=== PATIENT | female | born 1930 | race Caucasian/White ===

== ENCOUNTER 2018-12-24 15:41 | Inpatient (IN) | payer OTHER ==
[~2018-12-24] VITALS: Ht 162.6 cm; Wt 65.8 kg
[~2018-12-24 15:41] MED LIST: ATOR10TA PO; ATOR20TA PO; CAR30 PO; CARV12.5 PO; CARV3.12 PO; DABI75CA PO; DIGO0.122 PO; DOCU-474 PO; DOCU100C83 PO; DONE10TA10 PO; FURO-570 PO; FURO-572 PO; ISOS10TA9 PO; LEVO0.0211 PO; LEVO500T6 IV; LEVO500T6 PO; LEVO750T2 IV; MEMA10TA PO; MEMA28CE1 PO; METR500S14 IV; PAM25 PO; POTA10TA33 PO; POTA10TE30 PO; QUET50TA PO; RIVA20TA PO; SPIR50TA PO
[2018-12-24 15:45] VITALS: BP 134/70
[2018-12-24] MEDS ORDERED: NACL 0.9% 1,000 ML IV SCH (15:58)
[2018-12-24] MEDS ORDERED: LEVOFLOXACIN 500 MG/D5W PREMIX 100 ML IV ONE (16:00)
[2018-12-24] MEDS: LEVOFLOXACIN 250 MG/D5 PREMIX 50 ML IV SCH (16:00)
--- NOTE | 2018-12-24 16:01 | NUR ---
88/f bib daughter with c/o increasing sob and aloc. Per daughter sts since pt was discharged from [facility] last friday she has been increasingly getting sob. Patient was referred from PCP today for hypoxia. Per referral, patient pulse ox=77% on ra. On arrival, pulse ox=98% on ra. RR are even and tachypneic. Patient denies any cp. hx--COPD, A FIB, CHF, ALZHEIMER rx--daughter sts "on her file" DENIES N/V/D; SKIN IS PALE/WARM/DRY; IAN LEGS PITTING EDEMA. NEUROLOGICAL AT BASELINE. LUNGS CLEAR BL; PULSE OX 97% AT THIS TIME. HR 83/MINS, RR 23/MINS; PT DENIES ANY FEVER, CP OR OR COUGH AT THIS TIME; PATIENT STATES PAIN OF 0/10 AT THIS TIME. PATIENT POSITIONED FOR COMFORT; HOB ELEVATED; BEDRAILS UP X2; BED DOWN. ER MD MADE AWARE OF PT STATUS.
--- NOTE | 2018-12-24 16:09 | NUR ---
CXR AT BEDSIDE.
--- NOTE | 2018-12-24 16:09 | NUR ---
Patient being evaluated by DR GARCES at bedside. Addendum: 12/24/18 at 1809 by MED1 PT CAN'T PROVIDE URINE AT THIS TIME.
[2018-12-24 16:48] LABS: BASOPHILS # (AUTO) 0.1 K/uL (0.00-0.22); BASOPHILS % (AUTO) 1.1 % (0.0-2.0); EOSINOPHILS # (AUTO) 0.4 K/uL (0-0.4); EOSINOPHILS % (AUTO) 4.3 % (0.0-4.0); HEMATOCRIT 40.4 % (36-48); HEMOGLOBIN 12.6 g/dL (12.0-16.0); LYMPHOCYTES # (AUTO) 0.8 K/uL (2.5-16.5); LYMPHOCYTES % (AUTO) 10.3 % (20.5-51.1); MEAN CORPUSCULAR HEMOGLOBIN 26 pg (27-31); MEAN CORPUSCULAR HGB CONC 31 g/dL (33-37); MONOCYTES # (AUTO) 0.5 K/uL (0.8-1.0); NEUTROPHILS # (AUTO) 6.4 K/uL (1.8-7.7); NEUTROPHILS % (AUTO) 78.3 % (42.2-75.2); PLATELET COUNT (AUTO) 211 K/uL (140-450); RED BLOOD CELL COUNT(AUTO) 4.81 MIL/uL (4.20-5.40); RED CELL DISTRIBUTION WIDTH 18.6 % (11.6-13.7); WHITE BLOOD COUNT (AUTO) 8.1 K/uL (4.8-10.8)
[2018-12-24 17:14] LABS: ANION GAP 7.9 (8-16); CARBON DIOXIDE 31.7 mmol/L (21-32); CHLORIDE 101 mmol/L (98-107); CREATININE 1.4 mg/dL (0.6-1.3); GLUCOSE 100 mg/dL (74-106); POTASSIUM 4.6 mmol/L (3.5-5.1); SODIUM SERUM 136 mmol/L (136-145); UREA NITROGEN, BLOOD 33 mg/dL (7-18)
[2018-12-24 17:18] LABS: ALBUMIN 3.8 g/dL (3.4-5.0); ASPARTATE AMINOTRANSFERASE 25 U/L (15-37); TOTAL BILIRUBIN 0.6 mg/dL (0.0-1.0)
--- NOTE | 2018-12-24 18:04 | NUR ---
Patient will be admitted to care of DR GARCIA. Admited to TELE. Will go to room 124A. Belongings list completed. Report to GUANAKITO ARCE.
--- NOTE | 2018-12-24 18:08 | NUR ---
Jolanta crandall in [facility] - 12/24/18 at 1809 by MED1 PT CAN'T PROVIDE URINE AT THIS TIME.
[2018-12-24 18:30] VITALS: BP 144/78
--- NOTE | 2018-12-24 18:30 | NUR ---
PT ARRIVED FROM ER IN [facility], REPORT RECIVED FROM INSIDE SALES PERSON, PT PLACED ON LINE PALLETIZER, PT AWAKE ALERT, RESP EVEN UNLABORED ON RA, SKIN WARM DRY COLOR WNL, PT ACCOMPANIED BY DAUGHTER, PATINET AND DAUGHTER ORIENTED TO ROOM AND UNIT, POC REVIEWED, CALL GILBERT WITHIN REACH SIDE RAILS UP, BED LOCKED IN LOW POSITION, WILL CONTINUE TO MONITOR
--- NOTE | 2018-12-24 19:15 | NUR ---
REPORT GIVEN TO MANAGER MISSION NURSE CURTIS AND NASIR, PT IN STABLE CONDITION, DAUGHTER OSITO AT BEDSIDE.
--- NOTE | 2018-12-24 19:16 | NUR ---
RECEIVED ENDORSEMENT FROM AM YAZMIN CALABRESE; PATIENT A/Ox2, ABLE TO MAKE NEEDS KNOWN, BUT CONFUSED. INTRODUCED SELF AND RN CURTIS TO PATIENT. PATIENT'S PRIMARY LANGUAGE IS NAURUAN; DAUGHTER ANGELIKA IN THE ROOM, ABLE TO TRANSLATE. NO SOB OR DISTRESS NOTED, ON ROOM AIR. SKIN WARM AND DRY. PLAN OF CARE REVIEWED TO PATIENT AND DAUGHTER. BED IN THE LOWEST POSITION, CALL LIGHT WITHIN REACH. INITIAL ASSESSMENT DONE, ALL SAFETY PRECAUTIONS MET. WILL CONTINUE TO MONITOR
--- NOTE | 2018-12-24 21:05 | NUR ---
MADE ROUNDS; PATIENT ASLEEP, EYES CLOSED, VISIBLE CHEST RISE AND FALL NOTED. WILL CONTINUE TO MONITOR.
[2018-12-24] MEDS ORDERED: HYDROcodone/APAP 5/325 MG 1 TAB TAB PO PRN (21:30)
[2018-12-24] MEDS ORDERED: ACETAMINOPHEN 325 MG TAB PO PRN (21:30)
[2018-12-24] MEDS ORDERED: LORazepam 2 MG/ML VIAL IVP PRN (21:30)
[2018-12-24] MEDS ORDERED: ONDANSETRON 4 MG/2 ML VIAL IVP PRN (21:30)
[2018-12-24 22:41] LABS: APPEARANCE,URINE CLEAR (CLEAR); BILIRUBIN,URINE NEGATIVE (NEGATIVE); BLOOD, URINE NEGATIVE (NEGATIVE); COLOR,URINE YELLOW (YELLOW); LEUKOCYTE ESTERASE ,URINE 1+ (NEGATIVE); NITRITE, URINE NEGATIVE (NEGATIVE); UGLUCOSE NEGATIVE (NEGATIVE)
[2018-12-24 22:43] LABS: RBC,URINE 0-5 (RARE) /HPF (0-5)
--- NOTE | 2018-12-24 22:59 | NUR ---
LAB CALLED REGARDING CRITICAL LAB VALUE; PATIENT IS INFLUENZA B (+). DR. CONLEY NOTIFIED VIA MESSAGING SERVICE. WILL AWAIT ORDERS.
[2018-12-24] MEDS ORDERED: LEVOFLOXACIN 500 MG/D5W PREMIX 100 ML IV SCH (23:00)
--- NOTE | 2018-12-24 23:12 | NUR ---
DR. CONLEY CALLED BACK; NEW ORDERS RECEIVED AND CARRIED OUT.
[2018-12-25] VITALS: BP 103/72
--- NOTE | 2018-12-25 00:06 | NUR ---
VITALS TAKEN, ALL WNL. WILL CONTINUE TO MONITOR.
--- NOTE | 2018-12-25 02:26 | NUR ---
PATIENT ASLEEP, NO SOB OR DISTRESS NOTED. VISIBLE CHEST RISE AND FALL NOTED. WILL CONTINUE TO MONITOR.
[2018-12-25 04:00] VITALS: BP 138/89
--- NOTE | 2018-12-25 04:20 | NUR ---
VITALS TAKEN, NO SOB OR DISTRESS NOTED. WILL CONTINUE TO MONITOR.
[2018-12-25 06:24] LABS: BASOPHILS # (AUTO) 0.1 K/uL (0.00-0.22); BASOPHILS % (AUTO) 0.8 % (0.0-2.0); EOSINOPHILS # (AUTO) 0.3 K/uL (0-0.4); EOSINOPHILS % (AUTO) 3.3 % (0.0-4.0); HEMATOCRIT 37.1 % (36-48); HEMOGLOBIN 11.6 g/dL (12.0-16.0); LYMPHOCYTES # (AUTO) 1.1 K/uL (2.5-16.5); LYMPHOCYTES % (AUTO) 14.7 % (20.5-51.1); MEAN CORPUSCULAR HEMOGLOBIN 26 pg (27-31); MEAN CORPUSCULAR HGB CONC 31 g/dL (33-37); MEAN CORPUSCULAR VOLUME 83.5 fL (80-94); MONOCYTES # (AUTO) 0.7 K/uL (0.8-1.0); MONOCYTES % (AUTO) 9.5 % (1.7-9.3); NEUTROPHILS # (AUTO) 5.5 K/uL (1.8-7.7); NEUTROPHILS % (AUTO) 71.7 % (42.2-75.2); PLATELET COUNT (AUTO) 197 K/uL (140-450); RED BLOOD CELL COUNT(AUTO) 4.44 MIL/uL (4.20-5.40); RED CELL DISTRIBUTION WIDTH 18.4 % (11.6-13.7); WHITE BLOOD COUNT (AUTO) 7.7 K/uL (4.8-10.8)
[2018-12-25] MEDS ORDERED: LEVOTHYROXINE SODIUM PO SCH (06:30)
[2018-12-25 06:51] LABS: ALBUMIN 3.1 g/dL (3.4-5.0); ANION GAP 9.8 (8-16); ASPARTATE AMINOTRANSFERASE 25 U/L (15-37); CARBON DIOXIDE 26.4 mmol/L (21-32); CHLORIDE 107 mmol/L (98-107); CREATININE 0.9 mg/dL (0.6-1.3); GLUCOSE 89 mg/dL (74-106); MAGNESIUM 2.3 mg/dL (1.8-2.4); PHOSPHORUS 3.1 mg/dL (2.5-4.9); POTASSIUM 4.2 mmol/L (3.5-5.1); SODIUM SERUM 139 mmol/L (136-145); TOTAL BILIRUBIN 0.6 mg/dL (0.0-1.0); UREA NITROGEN, BLOOD 23 mg/dL (7-18)
[2018-12-25] MEDS ORDERED: HYDROcodone/APAP 5/325 MG 1 TAB TAB PO PRN (07:15)
--- NOTE | 2018-12-25 07:20 | NUR ---
RECEIVED PT REPORT FROM HARNESS TIER NURSE AT BEDSIDE. PT IS AWAKE IN BED, NO S/S OF ACUTE DISTRESS NOTED, NO C/O PAIN AT THIS TIME. PT IS ON ROOM AIR, SKIN IS INTACT. SCD'S ARE ON. IV SITE NOTED ON THE LAC, 20 G, SALINE LOCKED. DROPLET PRECAUTIONS IN PLACE FOR FLU. FALL PRECAUTIONS IN PLACE. CALL LIGHT WITHIN REACH. WILL CONT TO MONITOR PT.
--- NOTE | 2018-12-25 07:20 | NUR ---
ENDORSED PATIENT TO AM SHIFT RN. PATIENT IN STABLE CONDITION.
[2018-12-25] MEDS ORDERED: LEVOTHYROXINE 0.025 MG TAB PO SCH (07:30)
--- NOTE | 2018-12-25 07:30 | NUR ---
PT HAVING REPEAT CXR AT THIS TIME.
[2018-12-25 08:00] VITALS: BP 152/71
--- NOTE | 2018-12-25 08:16 | NUR ---
PATIENT HAS BEEN SCREENED AND CATEGORIZED MODERATE NUTRITION RISK. PATIENT WILL BE SEEN WITHIN 3-5 DAYS OF ADMISSION. 12/27/18MARYCARMEN CONLEY RD
--- NOTE | 2018-12-25 08:40 | NUR ---
PT C/O SOB. VS CHECKED, O2 IS 94% ON RA. PT COUGHING INTERMITTENTLY. RT CALLED TO GIVE PT BREATHING TX. Addendum: 12/25/18 at 1100 by Vera Prabhakar RN 2L O2 NC APPLIED FOR PT'S BREATHING AND COMFORT
[2018-12-25] MEDS: ALBUTEROL 0.083% 2.5 MG/3 ML NEBU INH PRN ×2 (08:45→18:47)
--- NOTE | 2018-12-25 08:53 | NUR ---
PT SEEN BY DR GARCIA
[2018-12-25] MEDS: OSELTAMIVIR PHOSPHATE 75 MG CAP PO SCH (08:57)
[2018-12-25] MEDS: DOCUSATE SODIUM 100 MG GELCAP PO SCH ×2 (08:57→20:54)
[2018-12-25] MEDS: QUEtiapine FUMARATE 25 MG TAB PO SCH ×2 (08:57→20:59)
[2018-12-25] MEDS: ISOSORBIDE DINITRATE 10 MG TAB PO SCH ×2 (08:57→20:55)
[2018-12-25] MEDS: CARVEDILOL 12.5 MG TAB PO SCH ×2 (08:59→20:54)
[2018-12-25] MEDS: FUROSEMIDE 20 MG TAB PO SCH (08:59)
[2018-12-25] MEDS: DILTIAZEM 30 MG TAB PO SCH ×2 (08:59→20:55)
[2018-12-25] MEDS: MEMANTINE 10 MG TAB PO SCH ×2 (08:59→20:55)
[2018-12-25] MEDS ORDERED: NON-FORMULARY ITEM (Memantine HCl (Namenda Xr) 28 MG) PO SCH (09:00)
[2018-12-25] MEDS: SPIRONOLACTONE 25 MG TAB PO SCH ×2 (09:00→16:56)
[2018-12-25] MEDS ORDERED: DOCUSATE SODIUM 100 MG PO SCH (09:00)
[2018-12-25] MEDS ORDERED: MEMANTINE 10 MG TAB PO SCH (09:00)
[2018-12-25] MEDS: DABIGATRAN ETEXILATE MESYLAT 75 MG CAP PO SCH ×2 (09:05→21:14)
[2018-12-25 11:41] VITALS: BP 112/64
[2018-12-25] MEDS ORDERED: NACL 0.9% 1,000 ML IV SCH (13:50)
--- NOTE | 2018-12-25 14:00 | NUR ---
CHECKED PT'S VITAL SIGNS, PT'S HEART RATE IS BETWEEN 44-50, BP IS 94/44. PT IS DROWSY AND SLEEPY. DAUGHTER IS CONCERNED. DR CHIRAG GARCIA WAS PAGED. OBTAINED ORDERS FROM HIM TO ADMIN 1000 ML NS BOLUS, ECHOCARDIOGRAPHY, TROPONIN DRAW, AND A CARDIAC CONSULT WITH ANDREE GARCIA. NS BOLUS IS INFUSING AT THIS TIME. PT'S DAUGHTER IS AT BEDSIDE. CONTINUING TO MONITOR PT.
--- NOTE | 2018-12-25 14:30 | NUR ---
PT HAVING ECHOCARDIOGRAM AT THIS TIME
--- NOTE | 2018-12-25 15:19 | NUR ---
PT REASSESSED, PT IS SLEEPING. IV NS BOLUS IS INFUSING, BP IS 101/49 AT THIS TIME, HEART RATE FLUCTUATING BETWEEN 59-65. DAUGHTERS ARE AT BEDSIDE. WILL CONTINUE TO MONITOR PT.
--- NOTE | 2018-12-25 15:49 | NUR ---
PT'S DAUGHTER ANGELIKA IS TAKING PT'S DENTURES HOME.
--- NOTE | 2018-12-25 15:50 | NUR ---
PT REASSESSED: BP 112/63, HR 66, O2 99% ON 2L, TEMP 97.5, RR 18. PT IS AWAKE, DAUGHTER IS AT BEDSIDE.
[2018-12-25 16:00] VITALS: BP 120/56
[2018-12-25] MEDS: LEVOFLOXACIN 250 MG/D5 PREMIX 50 ML IV SCH (16:02)
--- NOTE | 2018-12-25 18:30 | NUR ---
PT C/O SOB, RT CALLED TO GIVE A BREATHING TX. PT REPORTS FEELING BETTER AFTER BREATHING TX. FAMILY IS AT BEDSIDE.
--- NOTE | 2018-12-25 19:20 | NUR ---
PT ENDORSED TO JACQUARD CARD CUTTER IN STABLE CONDITION
[2018-12-25 20:00] VITALS: BP 147/68
[2018-12-25] MEDS: NORTRIPTYLINE 25 MG CAP PO SCH (20:53)
[2018-12-25] MEDS: ATORVASTATIN 20 MG TAB PO SCH (20:55)
[2018-12-25] MEDS: DONEPEZIL 10 MG TAB PO SCH (20:55)
[2018-12-25] MEDS: BISACODYL 10 MG SUPP RC PRN (21:40)
--- NOTE | 2018-12-25 22:00 | NUR ---
DUE MEDICATIONS GIVEN PATIENT TOLERATED WELL.
--- NOTE | 2018-12-25 22:30 | NUR ---
FAMILY STATED PATIENT IS HAVING DIFFICULTY TO PASS BM CALLED DR GARCIA ORDER FOR DULCOLAX SUPPOSITORY PRN DAILY, INSERTED SUPPOSITORY.
--- NOTE | 2018-12-25 23:00 | NUR ---
PATIENT AMBULATED TO RESTROOM, UNSTEADY GAIT, ALMOST FELL WHEN STANDING UP ACCORDING TO COMPOSITE TECHNICIAN. PLACED BEDSIDE COMMODE AT BEDSIDE. Addendum: 12/25/18 at 2312 by Leann Guajardo RN WRONG PATIENT DISREGARD.
[2018-12-26] VITALS: BP 119/58
--- NOTE | 2018-12-26 | NUR ---
V/S TAKEN BP 119/58 HR 77 98% ON 3 L VIA NC RR 16 EVEN. DENIES PAIN WILL CONTINUE TO MONITOR. CHANGED PATIENT, SMALL BM NOTED, HEIDY CARE PROVIDED, WILL CONTINUE TO MONITOR.
[2018-12-26] MEDS: ALBUTEROL 0.083% 2.5 MG/3 ML NEBU INH PRN ×2 (01:25→06:29)
[2018-12-26 04:00] VITALS: BP 106/50
--- NOTE | 2018-12-26 04:00 | NUR ---
O2 WENT DOWN TO 64% WHEN SLEEPING, CALLED R/T PLACED HOB UP, PATIENT WOKE UP ON 3 L, O2SAT 100%.
[2018-12-26] MEDS: LEVOTHYROXINE 0.025 MG TAB PO SCH (06:03)
--- NOTE | 2018-12-26 06:30 | NUR ---
DUE MEDICATION GIVEN, WILL CONTINUE TO MONITOR.
--- NOTE | 2018-12-26 07:30 | NUR ---
PATIENT WAS AWAKE, ALERT, ABLE TO ANSWER QUESTIONS. RESPIRATION EVEN, UNLABOR ON 3L NC. SKIN DRY AND WARM. IV PATENT AND INTACT. DENIED PAIN, SOB AT THIS TIME. PLAN OF CARE WAS DISCUSSED WITH PATIENT AND FAMILY. BED AT LOW POSITION, SIDE RAILS UP. CALL LIGHT WITHIN REACH
--- NOTE | 2018-12-26 07:33 | NUR ---
ENDORSED PATIENT TO DAY SHIFT NURSE, PATIENT STABLE.
[2018-12-26 07:38] LABS: BASOPHILS % (AUTO) 0.4 % (0.0-2.0); EOSINOPHILS # (AUTO) 0.2 K/uL (0-0.4); EOSINOPHILS % (AUTO) 2.2 % (0.0-4.0); HEMATOCRIT 38.4 % (36-48); HEMOGLOBIN 11.9 g/dL (12.0-16.0); LYMPHOCYTES % (AUTO) 11.7 % (20.5-51.1); MEAN CORPUSCULAR HEMOGLOBIN 26 pg (27-31); MEAN CORPUSCULAR HGB CONC 31 g/dL (33-37); MEAN CORPUSCULAR VOLUME 84.8 fL (80-94); MONOCYTES # (AUTO) 0.8 K/uL (0.8-1.0); MONOCYTES % (AUTO) 8.8 % (1.7-9.3); NEUTROPHILS # (AUTO) 6.6 K/uL (1.8-7.7); NEUTROPHILS % (AUTO) 76.9 % (42.2-75.2); PLATELET COUNT (AUTO) 173 K/uL (140-450); RED BLOOD CELL COUNT(AUTO) 4.52 MIL/uL (4.20-5.40); RED CELL DISTRIBUTION WIDTH 18.6 % (11.6-13.7); WHITE BLOOD COUNT (AUTO) 8.6 K/uL (4.8-10.8)
[2018-12-26 07:43] LABS: ANION GAP 10.1 (8-16); CARBON DIOXIDE 30.1 mmol/L (21-32); CHLORIDE 104 mmol/L (98-107); CREATININE 0.9 mg/dL (0.6-1.3); GLUCOSE 106 mg/dL (74-106); SODIUM SERUM 139 mmol/L (136-145); UREA NITROGEN, BLOOD 23 mg/dL (7-18)
[2018-12-26 07:44] LABS: POTASSIUM 5.2 mmol/L (3.5-5.1)
[2018-12-26 08:00] VITALS: BP 107/55
[2018-12-26] MEDS: SPIRONOLACTONE 25 MG TAB PO SCH (09:00)
--- NOTE | 2018-12-26 09:45 | NUR ---
PATIENT WAS AWAKE. RESPIRATION EVEN, UNLABOR ON 2L NC. NO DISTRESS NOTED AT THIS TIME. MEDS WERE GIVEN PER ORDER. BED ALARM ACTIVE. CALL LIGHT WITHIN REACH
[2018-12-26] MEDS: OSELTAMIVIR PHOSPHATE 75 MG CAP PO SCH (09:48)
[2018-12-26] MEDS: QUEtiapine FUMARATE 25 MG TAB PO SCH ×2 (09:48→20:39)
[2018-12-26] MEDS: FUROSEMIDE 20 MG TAB PO SCH (09:48)
[2018-12-26] MEDS: MEMANTINE 10 MG TAB PO SCH ×2 (09:48→20:41)
[2018-12-26] MEDS: DILTIAZEM 30 MG TAB PO SCH ×2 (09:48→20:39)
[2018-12-26] MEDS: DOCUSATE SODIUM 100 MG GELCAP PO SCH ×2 (09:49→20:41)
[2018-12-26] MEDS: ISOSORBIDE DINITRATE 10 MG TAB PO SCH ×2 (09:49→20:40)
[2018-12-26] MEDS: CARVEDILOL 12.5 MG TAB PO SCH ×2 (09:49→20:40)
[2018-12-26] MEDS: DABIGATRAN ETEXILATE MESYLAT 75 MG CAP PO SCH ×2 (09:51→20:56)
--- NOTE | 2018-12-26 11:01 | NUR ---
DR. CHIRAG GARCIA WAS MADE AWARE OF POTASSIUM LEVEL 5.2. CONTINUE TO MONITOR PER
[2018-12-26 12:00] VITALS: BP 92/61
--- NOTE | 2018-12-26 12:00 | NUR ---
abg drawn on rb without incident and decreased fio2 to 1lnc and results given to rn. parsons
--- NOTE | 2018-12-26 12:30 | NUR ---
PATIENT WAS SLEEPING COMFORTABLY. RESPIRATION EVEN, UNLABOR ON 1L NC. NO DISTRESS NOTED AT THIS TIME
[2018-12-26] MEDS: BISACODYL 10 MG SUPP RC PRN (13:23)
--- NOTE | 2018-12-26 13:49 | NUR ---
PATIENT WAS GIVEN SUPPOSITORY PER ORDER FOR CONSTIPATION. PATIENT WAS GASPING FOR AIR UPON TURNING. PATIENT WAS PLACED ON 2L NC, SPO2 96%. PATIENT IS STABLE AT THIS TIME
[2018-12-26] MEDS: LEVOFLOXACIN 250 MG/D5 PREMIX 50 ML IV SCH (15:38)
--- NOTE | 2018-12-26 15:55 | NUR ---
PATIENT HAD BM X 1 WITH MODERATE AMOUNT, HARD STOOL
[2018-12-26 16:00] VITALS: BP 107/62
--- NOTE | 2018-12-26 18:02 | NUR ---
PATIENT WAS AWAKE, EATING DINNER COMFORTABLY. RESPIRATION EVEN, UNLABOR ON 2L NC. IV PATENT AND INTACT. NO DISTRESS NOTED AT THIS TIME. FAMILY AT BEDSIDE, CALL LIGHT WITHIN REACH
--- NOTE | 2018-12-26 19:12 | NUR ---
ENDORSEMENT GIVEN TO AIRPLANE PILOT COMMERCIAL NURSE. PATIENT IS STABLE AT THIS TIME
--- NOTE | 2018-12-26 19:12 | NUR ---
RECEIVED BEDSIDE REPORT FROM YAZMIN CABRERA, PATIENT IN BED, ON 2 L NC, O2SAT 99%, BP 130/75 HR 97, DENIES PAIN, ON DROPLET PRECAUTIONS, PATIENT IS FALL RISK, BED ALARM ON, FAMILY AT BEDSIDE, UPDATED BOARD, EXPLAINED PLAN OF CARE, WILL CONTINUE TO MONITOR.
[2018-12-26 20:00] VITALS: BP 130/75
[2018-12-26] MEDS: NORTRIPTYLINE 25 MG CAP PO SCH (20:39)
--- NOTE | 2018-12-26 20:39 | NUR ---
DUE MEDICATIONS GIVEN, PATIENT TOLERATED WELL, PATIENT ASKED TO SLEEP. TURNED LIGHTS OFF, BED ALARM ON, REPOSITIONED PATIENT FOR COMFORT, WILL CONTINUE TO MONITOR.
[2018-12-26] MEDS: DONEPEZIL 10 MG TAB PO SCH (20:40)
[2018-12-26] MEDS: ATORVASTATIN 20 MG TAB PO SCH (20:41)
--- NOTE | 2018-12-26 22:06 | NUR ---
PATIENT SLEEPING IN BED, BED ALARM ON, CALL LIGHT WITHIN REACH.
[2018-12-27] VITALS: BP 115/69
--- NOTE | 2018-12-27 00:25 | NUR ---
V/S TAKEN BP 115/69 HR 65 O2SAT 99% ON 2 L NC. PATIENT DENIES PAIN. BED ALARM ON.
--- NOTE | 2018-12-27 02:20 | NUR ---
PATIENT ASLEEP IN BED, NO SIGNS OF RESPIRATORY DISTRESS. O2SAT 95% ON 2 L VIA NC WHILE ASLEEP.
[2018-12-27 03:58] VITALS: BP 128/88
--- NOTE | 2018-12-27 04:00 | NUR ---
V/S TAKEN NOTED BP 128/88 HR 70 98% ON 2 L NC.
[2018-12-27] MEDS: LEVOTHYROXINE 0.025 MG TAB PO SCH (05:45)
--- NOTE | 2018-12-27 06:27 | NUR ---
DUE SYNTHROID GIVEN PATIENT TOLERATED WELL.
--- NOTE | 2018-12-27 07:28 | NUR ---
ENDORSED PATIENT TO DAY SHIFT NURSE, PATIENT STABLE.
--- NOTE | 2018-12-27 07:33 | NUR ---
RECEIVED PT FROM BLOOD OR BLOOD BANK TECHNICIAN NURSE, PT IS AWAKE AND LYING ON THE BED WITH SIDE RAILS UP AND CALL LIGHT WITHIN REACH, FALL PRECAUTION ENFORCED, PT IS ON DROPLET PRECAUTION, IV LINE ON THE LEFT AC G. 20 ON SALINE LOCK, NO SIGN OF DISTRESS NOTED AND WILL CONTINUE TO MONITOR PT.
[2018-12-27 07:54] LABS: BASOPHILS # (AUTO) 0.1 K/uL (0.00-0.22); BASOPHILS % (AUTO) 1.2 % (0.0-2.0); EOSINOPHILS # (AUTO) 0.3 K/uL (0-0.4); EOSINOPHILS % (AUTO) 3.8 % (0.0-4.0); HEMATOCRIT 36.8 % (36-48); HEMOGLOBIN 11.5 g/dL (12.0-16.0); LYMPHOCYTES # (AUTO) 1.3 K/uL (2.5-16.5); LYMPHOCYTES % (AUTO) 18.2 % (20.5-51.1); MEAN CORPUSCULAR HEMOGLOBIN 27 pg (27-31); MEAN CORPUSCULAR HGB CONC 31 g/dL (33-37); MEAN CORPUSCULAR VOLUME 85.1 fL (80-94); MONOCYTES # (AUTO) 0.7 K/uL (0.8-1.0); MONOCYTES % (AUTO) 9.5 % (1.7-9.3); NEUTROPHILS # (AUTO) 4.9 K/uL (1.8-7.7); NEUTROPHILS % (AUTO) 67.3 % (42.2-75.2); PLATELET COUNT (AUTO) 166 K/uL (140-450); RED BLOOD CELL COUNT(AUTO) 4.33 MIL/uL (4.20-5.40); RED CELL DISTRIBUTION WIDTH 18.8 % (11.6-13.7); WHITE BLOOD COUNT (AUTO) 7.3 K/uL (4.8-10.8)
[2018-12-27 08:00] VITALS: BP 128/66
[2018-12-27 08:02] LABS: ANION GAP 11.2 (8-16); CARBON DIOXIDE 29.4 mmol/L (21-32); CHLORIDE 105 mmol/L (98-107); CREATININE 1.1 mg/dL (0.6-1.3); GLUCOSE 101 mg/dL (74-106); POTASSIUM 4.6 mmol/L (3.5-5.1); SODIUM SERUM 141 mmol/L (136-145); UREA NITROGEN, BLOOD 28 mg/dL (7-18)
--- NOTE | 2018-12-27 08:15 | NUR ---
PT IS AWAKE AND BEING FED BY DAUGHTER ON THE BEDSIDE, VITAL SIGNS TAKEN AND WITHIN NORMAL LIMIT. NO SIGN OF DISTRESS NOTED AND WILL MONITOR PT.
[2018-12-27] MEDS: DABIGATRAN ETEXILATE MESYLAT 75 MG CAP PO SCH ×2 (09:01→20:34)
[2018-12-27] MEDS: QUEtiapine FUMARATE 25 MG TAB PO SCH ×2 (09:02→20:28)
[2018-12-27] MEDS: FUROSEMIDE 20 MG TAB PO SCH (09:02)
[2018-12-27] MEDS: ISOSORBIDE DINITRATE 10 MG TAB PO SCH (09:04)
[2018-12-27] MEDS: CARVEDILOL 12.5 MG TAB PO SCH ×2 (09:05→20:27)
[2018-12-27] MEDS: MEMANTINE 10 MG TAB PO SCH ×2 (09:05→20:27)
[2018-12-27] MEDS: DOCUSATE SODIUM 100 MG GELCAP PO SCH ×2 (09:05→20:26)
[2018-12-27] MEDS: OSELTAMIVIR PHOSPHATE 75 MG CAP PO SCH (09:06)
[2018-12-27] MEDS: DILTIAZEM 30 MG TAB PO SCH ×2 (09:06→20:26)
--- NOTE | 2018-12-27 09:10 | NUR ---
PT IS AWAKE AND SEATED ON THE BED, V/S TAKEN PER PARAMETER, ORAL MEDICATIONS GIVEN TO PT, CRUSHED AND WITH APPLE SAUCE AND PT TOLERATED IT WITH ASPIRATION PRECAUTION. NO SIGN OF DISTRESS NOTED AND WILL CONTINUE TO MONITOR PT.
[2018-12-27 12:00] VITALS: BP 100/56
--- NOTE | 2018-12-27 12:48 | NUR ---
DR. GARAY CAME TO THE PT'S ROOM AND IS TALKING TO THE PT'S DAUGHTERS NOW.
[2018-12-27] MEDS: SILDENAFIL 20 MG TAB PO SCH ×2 (13:00→16:18)
[2018-12-27 16:00] VITALS: BP 118/55
[2018-12-27] MEDS: LEVOFLOXACIN 250 MG/D5 PREMIX 50 ML IV SCH (16:23)
--- NOTE | 2018-12-27 19:20 | NUR ---
ENDORSED PT TO DEPENDENCY COUNSELOR NURSECLAIRE FOR CONTINUITY OF CARE, PT IS STABLE AT THIS TIME.
--- NOTE | 2018-12-27 19:21 | NUR ---
RECEIVED REPORT FROM DAY SHIFT NURSE WINSTON-RN AT BEDSIDE. PT RESTING IN BED, AOX2- IRISH SPEAKING, ON 2L/NC WITH LEFT AC #20G-SL. DISCUSSED PLAN OF CARE AND PT VERBALIZED UNDERSTANDING. BED IN LOWEST POSITION, BED BREAKS ON, BOTH SIDE RAILS UP AND FALL AND DROPLET PRECAUTIONS IN PLACE. BEDSIDE TABLE AND CALL LIGHT ARE WITHIN REACH. WILL CONTINUE TO MONITOR.
[2018-12-27 20:00] VITALS: BP 132/79
--- NOTE | 2018-12-27 20:00 | NUR ---
VITAL SIGNS TAKEN AND TOLERATED WELL. NEW IV SITE ON LEFT AC #22G- FLUSHING WELL ON SL. NO S/S OF RESPIRATORY DISTRESS OR DISCOMFORT NOTED AT THIS TIME. WILL CONTINUE TO MONITOR.
[2018-12-27] MEDS: DONEPEZIL 10 MG TAB PO SCH (20:26)
[2018-12-27] MEDS: ATORVASTATIN 20 MG TAB PO SCH (20:27)
[2018-12-27] MEDS: NORTRIPTYLINE 25 MG CAP PO SCH (20:28)
--- NOTE | 2018-12-27 20:34 | NUR ---
SCHEDULED MEDICATION GIVEN AND TOLERATED WELL. NO S/S OF RESPIRATORY DISTRESS OR DISCOMFORT NOTED AT THIS TIME. WILL CONTINUE TO MONITOR.
--- NOTE | 2018-12-27 22:00 | NUR ---
PT SLEEPING IN BED. NO S/S OF RESPIRATORY DISTRESS OR DISCOMFORT NOTED AT THIS TIME. WILL CONTINUE TO MONITOR.
[2018-12-28] VITALS: BP 106/47
--- NOTE | 2018-12-28 | NUR ---
VITAL SIGNS TAKEN AND TOLERATED WELL. NO S/S OF RESPIRATORY DISTRESS OR DISCOMFORT NOTED AT THIS TIME. WILL CONTINUE TO MONITOR.
--- NOTE | 2018-12-28 02:00 | NUR ---
PT SLEEPING IN BED. NO S/S OF RESPIRATORY DISTRESS OR DISCOMFORT AT THIS TIME. WILL CONTINUE TO MONITOR.
[2018-12-28 04:00] VITALS: BP 144/67
--- NOTE | 2018-12-28 04:00 | NUR ---
VITAL SIGNS TAKEN AND TOLERATED WELL. NO S/S OF RESPIRATORY DISTRESS OR DISCOMFORT AT THIS TIME. WILL CONTINUE TO MONITOR.
[2018-12-28] MEDS: LEVOTHYROXINE 0.025 MG TAB PO SCH (06:02)
--- NOTE | 2018-12-28 06:02 | NUR ---
SCHEDULED MEDICATION SYNTHROID GIVEN AND TOLERATED WELL. NO S/S OF RESPIRATORY DISTRESS OR DISCOMFORT AT THIS TIME. WILL CONTINUE TO MONITOR.
[2018-12-28 06:23] LABS: BASOPHILS % (AUTO) 0.5 % (0.0-2.0); EOSINOPHILS # (AUTO) 0.2 K/uL (0-0.4); EOSINOPHILS % (AUTO) 2.8 % (0.0-4.0); HEMOGLOBIN 11.7 g/dL (12.0-16.0); LYMPHOCYTES # (AUTO) 1.2 K/uL (2.5-16.5); LYMPHOCYTES % (AUTO) 15.7 % (20.5-51.1); MEAN CORPUSCULAR HEMOGLOBIN 26 pg (27-31); MEAN CORPUSCULAR HGB CONC 31 g/dL (33-37); MEAN CORPUSCULAR VOLUME 84.3 fL (80-94); MONOCYTES # (AUTO) 0.7 K/uL (0.8-1.0); MONOCYTES % (AUTO) 9.1 % (1.7-9.3); NEUTROPHILS # (AUTO) 5.4 K/uL (1.8-7.7); NEUTROPHILS % (AUTO) 71.9 % (42.2-75.2); PLATELET COUNT (AUTO) 187 K/uL (140-450); RED BLOOD CELL COUNT(AUTO) 4.51 MIL/uL (4.20-5.40); WHITE BLOOD COUNT (AUTO) 7.6 K/uL (4.8-10.8)
[2018-12-28 06:55] LABS: ASPARTATE AMINOTRANSFERASE 22 U/L (15-37); CARBON DIOXIDE 30.6 mmol/L (21-32); CHLORIDE 107 mmol/L (98-107); CREATININE 1.1 mg/dL (0.6-1.3); GLUCOSE 114 mg/dL (74-106); POTASSIUM 4.6 mmol/L (3.5-5.1); SODIUM SERUM 140 mmol/L (136-145); TOTAL BILIRUBIN 0.5 mg/dL (0.0-1.0); UREA NITROGEN, BLOOD 32 mg/dL (7-18)
--- NOTE | 2018-12-28 07:29 | NUR ---
ENDORSED PT CARE TO DAY SHIFT NURSE ANABEL-RN FOR CONTINUITY OF CARE.
--- NOTE | 2018-12-28 07:30 | NUR ---
RECEIVED BEDSIDE REPORT FROM SUPERVISOR EVAPORATOR NURSE. PATIENT IS AWAKE, ALERT AND ORIENTEDX1. NO SIGNS OF DISTRESS ON 2L NC. DIVEHI SPEAKER. PATIENT IS BEDBOUND, FALL RISK PROTOCOL IN PLACE. SKIN IS INTACT. TELE MONITOR IN PLACE, PACEMAKER IN PLACE. L AC 22G SL. CLEAN, DRY AND INTACT. DROPLET PRECAUTIONS FOR INFLUENZA B. ALLERGY IN PLACE. BED IN LOW POSITION. CALL LIGHT WITHIN REACH. WILL CONTINUE TO MONITOR THE PATIENT.
[2018-12-28 08:00] VITALS: BP 141/72
--- NOTE | 2018-12-28 09:00 | NUR ---
DAUGHTER CONCERNED ABOUT OXYGEN SAT AND HR. HR AND O2SAT NOT ACCURATE D/T LOOSE OXYGEN SAT CORD. CHANGED CORD. DAUGHTER MUCH HAPPIER THAT THE OXYGEN AND HR WNL.
[2018-12-28] MEDS: QUEtiapine FUMARATE 25 MG TAB PO SCH ×2 (09:58→21:20)
[2018-12-28] MEDS: DILTIAZEM 30 MG TAB PO SCH ×2 (09:58→21:00)
[2018-12-28] MEDS: MEMANTINE 10 MG TAB PO SCH ×2 (09:59→21:21)
[2018-12-28] MEDS: FUROSEMIDE 20 MG TAB PO SCH (09:59)
[2018-12-28] MEDS: OSELTAMIVIR PHOSPHATE 75 MG CAP PO SCH (09:59)
[2018-12-28] MEDS: DOCUSATE SODIUM 100 MG GELCAP PO SCH ×2 (09:59→21:20)
[2018-12-28] MEDS: SILDENAFIL 20 MG TAB PO SCH ×3 (09:59→17:00)
[2018-12-28] MEDS: MEGESTROL 400 MG/10 ML UDC PO SCH (10:00)
[2018-12-28] MEDS: CARVEDILOL 12.5 MG TAB PO SCH ×2 (10:00→21:00)
[2018-12-28] MEDS: DABIGATRAN ETEXILATE MESYLAT 75 MG CAP PO SCH ×2 (10:01→21:39)
--- NOTE | 2018-12-28 10:11 | NUR ---
CRUSHED AND ADMINISTERED MEDS. PATIENT TOLERATED WELL. PATIENT SITTING AT BEDSIDE ON CHAIR WATCHING TV. WILL CONTINUE TO MONITOR THE PATIENT.
--- NOTE | 2018-12-28 11:08 | NUR ---
PATIENT STILL SITTING IN CHAIR. NO SIGNS OF DISTRESS. DAUGHTER AT BEDSIDE. WILL CONTINUE TO MONITOR
[2018-12-28 12:00] VITALS: BP 111/54
--- NOTE | 2018-12-28 12:00 | NUR ---
PAGED DR GARAY IN REGARDS TO PHARMACY QUESTIONING THE LASIX ORDER. WILL WAIT HIS CALL BACK
--- NOTE | 2018-12-28 13:02 | NUR ---
ADMINISTERED MEDS. PATIENT TOLERATED WELL
--- NOTE | 2018-12-28 13:02 | NUR ---
PATIENT BACK IN BED SLEEPING
--- NOTE | 2018-12-28 13:42 | NUR ---
patient is sleeping. no signs of distress. will continue to monitor the patient
--- NOTE | 2018-12-28 15:00 | NUR ---
PAGED DR GARAY AGAIN. WILL AWAIT HIS CALL BACK.
--- NOTE | 2018-12-28 15:06 | NUR ---
12/28/18 RD INITIAL ASSESSMENT COMPLETED PLEASE REFER TO NUTRITION ASSESSMENT UNDER CARE ACTIVITY FOR ESTIMATED NUTRITIONAL NEEDS. 1. CONTINUE PUREE CARDIAC DIET TOLERATED 2. RD TO FOLLOW-UP 3-5 DAYS, MODERATE RISK MARYCARMEN CONLEY RD
--- NOTE | 2018-12-28 15:22 | NUR ---
OFFICE GAVE ME DR DELGADO CELL PHONE, [phone]. CALLED NO ANSWER, LEFT A MESSAGE IN REGARDS TO LASIX DOSING.
[2018-12-28] MEDS: ALBUTEROL 0.083% 2.5 MG/3 ML NEBU INH PRN ×3 (18:50→22:13)
--- NOTE | 2018-12-28 19:35 | NUR ---
REPORT RECEIVED BY FERNANDA ARCE DAYSHIFT NURSE, PT IN STABLE CONDITION.
[2018-12-28 20:00] VITALS: BP 107/52
--- NOTE | 2018-12-28 20:00 | NUR ---
PT IN BED WITH BIPAP ON NO SOB OR S/S OF PAIN OR DISTRESS NOTED. PT RR/ 18 AND 02 IS 100% WITH BIPAP MACHINE ON. OTHER V/S FOLLOWS T 96.9 P 76 R 18 B/P 107/52 02 100%. RESPIRATORY THERAPIST AT BEDSIDE EVALUATING PT.
[2018-12-28] MEDS ORDERED: VANCOMYCIN PER PHARMACY MC PRN (20:40)
--- NOTE | 2018-12-28 21:00 | NUR ---
PT GIVEN ALL SCHEDULED MEDS AT THIS TIME. COREG AND CARDIZEM HELD DUE TO LOW B/P. PT HAS NO C/O OF PAIN OR DISTRESS NOTED.
[2018-12-28] MEDS: ATORVASTATIN 20 MG TAB PO SCH (21:21)
[2018-12-28] MEDS: NORTRIPTYLINE 25 MG CAP PO SCH (21:21)
[2018-12-28] MEDS: DONEPEZIL 10 MG TAB PO SCH (21:22)
[2018-12-28] MEDS ORDERED: MEROPENEM 500 MG VIAL IV ONE (21:40)
[2018-12-28] MEDS: MEROPENEM 500 MG in NACL 0.9% 50 ML IV SCH (21:41)
[2018-12-28] MEDS ORDERED: VANCOMYCIN 1GM/DEXT 5% PREMIX 200 ML IV SCH (22:00)
--- NOTE | 2018-12-28 22:00 | NUR ---
DR. ARNDT, INFECTIOUS DISEASE MD CONSULT AT BEDSIDE. NEW ORDERS NOTED FOR MERREM AND VANCOCIN.
--- NOTE | 2018-12-28 22:14 | NUR ---
1850 patient was recieved short of breath.gave hhntx and placed pt on bipap. dr tucker approved order . bipap / rr 14 fio2 40%. pt improved post bipap
--- NOTE | 2018-12-28 22:15 | NUR ---
DR. ARNDT CALLED AND SAID THAT HE HAD ORDERED MERREM AND TO MAKE PHARMACY AWARE THAT HE IS AWARE OF ALLERGIES BUT WANTS TO ORDER THIS MEDICATION.
--- NOTE | 2018-12-28 23:00 | NUR ---
MERREM HUNG ORDERED NO ADVERSE EFFECTS NOTED.
[2018-12-28] MEDS ORDERED: VANCOMYCIN 1,000 MG VIAL ONE (23:43)
[2018-12-29] VITALS: BP 123/54
--- NOTE | 2018-12-29 00:30 | NUR ---
VANCOMYCIN HUNG ORDERED V/S FOLLOWS T 97.7 P 78 R 18 B/P 123/54 02 99% ON BIPAP MACHINE. NO S/S OF PAIN OR DISTRESS NOTED. PT TURNED AND REPOSITIONED.
[2018-12-29] MEDS: ALBUTEROL 0.083% 2.5 MG/3 ML NEBU INH PRN ×2 (01:07→06:50)
--- NOTE | 2018-12-29 01:15 | NUR ---
RECEIVED REPORT FROM OTHER AIR MOTOR REPAIRER NURSE. PT ON BIPAP, SLEEPING. NO S/S OF PAIN OR SOB. SAFETY PRECAUTION IN PLACE. CALL LIGHT WITHIN REACH.
--- NOTE | 2018-12-29 01:15 | NUR ---
REPORT GIVEN TO CHAYO HVAC INSTALLERMEDICAL ACCOUNTING CLERK NURSE DUE TO CHANGE IN ASSIGNMENT.
--- NOTE | 2018-12-29 03:45 | NUR ---
PT SLEEPING BUT WAKES EASILY. NO S/S OF RESP DISTRESS. NO S/S OF PAIN OR DISCOMFORT. SAFETY PRECAUTION IN PLACE.
--- NOTE | 2018-12-29 04:35 | NUR ---
SPUTUM NOT YET COLLECTED. NO COUGH. PER RT, SHE COULDN'T COLLECT SPUTUM BEC PT IS ON BI PAP AND IT'S VERY DRY. SHE WILL ENDORSE IT TO DAY SHIFT RT TO PUT PT OFF BIPAP AND PUT PT ON O2 AND BREATHING TREATMENT TO COLLECT SPUTUM.
--- NOTE | 2018-12-29 05:21 | NUR ---
0430 UNABLE TO GET SPUTUM SAMPLE. PATIENT IS ON BIPAP AND PATIENTS AIRWAY IS VERY DRY. PT DOES NOT HAVE A GOOD COUGH.WILL ENDORSE TO DAY SHIFT
[2018-12-29] MEDS: LEVOTHYROXINE 0.025 MG TAB PO SCH (05:56)
--- NOTE | 2018-12-29 06:00 | NUR ---
DUE MEDS GIVEN. PT TOLERATED WELL.
[2018-12-29 06:15] LABS: BASOPHILS % (AUTO) 0.5 % (0.0-2.0); EOSINOPHILS # (AUTO) 0.2 K/uL (0-0.4); EOSINOPHILS % (AUTO) 2.3 % (0.0-4.0); HEMATOCRIT 36.2 % (36-48); HEMOGLOBIN 11.4 g/dL (12.0-16.0); LYMPHOCYTES # (AUTO) 1.1 K/uL (2.5-16.5); LYMPHOCYTES % (AUTO) 15.7 % (20.5-51.1); MEAN CORPUSCULAR HEMOGLOBIN 27 pg (27-31); MEAN CORPUSCULAR HGB CONC 32 g/dL (33-37); MEAN CORPUSCULAR VOLUME 84.2 fL (80-94); MONOCYTES # (AUTO) 0.6 K/uL (0.8-1.0); MONOCYTES % (AUTO) 8.4 % (1.7-9.3); NEUTROPHILS # (AUTO) 5.1 K/uL (1.8-7.7); NEUTROPHILS % (AUTO) 73.1 % (42.2-75.2); PLATELET COUNT (AUTO) 185 K/uL (140-450); RED CELL DISTRIBUTION WIDTH 18.7 % (11.6-13.7)
[2018-12-29 06:36] LABS: CREATININE 1.1 mg/dL (0.6-1.3); GLUCOSE 107 mg/dL (74-106); UREA NITROGEN, BLOOD 30 mg/dL (7-18)
[2018-12-29 06:47] LABS: ANION GAP 6.2 (8-16); CARBON DIOXIDE 31.1 mmol/L (21-32); CHLORIDE 106 mmol/L (98-107); POTASSIUM 4.3 mmol/L (3.5-5.1); SODIUM SERUM 139 mmol/L (136-145)
--- NOTE | 2018-12-29 06:50 | NUR ---
REC'D PT ON TONY V60 BIPAP SETTINGS 12\6 RR14 FIO2 30z% ALARMS ON AND AUDIBLE I\L TX GIVEN WITH [id number] 2.5 MG WITH NO ADVERSE REACTION POST TX B\S ARE CLEAR AND PT IS WEARING MED FACE MASK AND SKIN INTEGRITY IN INTACT, PT IS SLEEPING
--- NOTE | 2018-12-29 07:15 | NUR ---
ENDORSED PT TO DAY SHIFT NURSE. PT IN STABLE CONDITION.
--- NOTE | 2018-12-29 07:16 | NUR ---
received bedside report from retail shift leader nurse. patient is awake, alert and orientedx1. on bipap, no signs of distress. fall risk protocol in place. patient ambulates w pt. skin is intact. patient is incontinent. droplet precautions in place for influenza b. L AC 22G INFUSING NS AT 10. CLEAN, DRY AND INTACT. bed in low position. call light within reach. will continue to monitor the patient
[2018-12-29 08:00] VITALS: BP 128/54
--- NOTE | 2018-12-29 08:40 | NUR ---
removed patient from bipap and placed patient on 2L NC. patient tolerating well. patient will eat breakfast now
--- NOTE | 2018-12-29 08:49 | NUR ---
PT OFF BIPAP PLACED ON 2LN TO EAT PT IS AWAKE AND ALERT SITTING UP IN BED WITH NO SIGNS OF DISTRESS NOTED AT THIS HR 84 O2SAT 98@ RR 18
[2018-12-29] MEDS ORDERED: FUROSEMIDE 20 MG TAB PO SCH (09:00)
[2018-12-29] MEDS: QUEtiapine FUMARATE 25 MG TAB PO SCH ×2 (10:05→21:00)
[2018-12-29] MEDS: DILTIAZEM 30 MG TAB PO SCH ×2 (10:06→21:00)
[2018-12-29] MEDS: MEMANTINE 10 MG TAB PO SCH ×2 (10:06→21:00)
[2018-12-29] MEDS: SILDENAFIL 20 MG TAB PO SCH ×3 (10:06→16:47)
[2018-12-29] MEDS: CARVEDILOL 12.5 MG TAB PO SCH ×2 (10:07→21:00)
[2018-12-29] MEDS: OSELTAMIVIR PHOSPHATE 75 MG CAP PO SCH (10:08)
[2018-12-29] MEDS: DOCUSATE SODIUM 100 MG GELCAP PO SCH ×2 (10:08→21:00)
[2018-12-29] MEDS: FUROSEMIDE 40 MG TAB PO SCH (10:08)
[2018-12-29] MEDS: MEGESTROL 400 MG/10 ML UDC PO SCH (10:08)
[2018-12-29] MEDS: DABIGATRAN ETEXILATE MESYLAT 75 MG CAP PO SCH ×2 (10:10→21:00)
[2018-12-29] MEDS: MEROPENEM 500 MG in NACL 0.9% 50 ML IV SCH ×2 (10:14→21:00)
--- NOTE | 2018-12-29 10:26 | NUR ---
CRUSHED AND ADMINISTERED MEDS. PATIENT TOLERATED WELL. WILL CONTINUE TO MONITOR THE PATIENT. PATIENT SITTING IN CHAIR WATCHING TV
--- NOTE | 2018-12-29 12:00 | NUR ---
patient is sleeping. no signs of distress. will continue to monitor
--- NOTE | 2018-12-29 12:50 | NUR ---
called rt, patients daughter wants her back on bipap
--- NOTE | 2018-12-29 13:00 | NUR ---
held revatio for b/p 99/32 woke patient up and put hob up b/p now 100/37. will continue to monitor. daughter at bedside.
--- NOTE | 2018-12-29 14:12 | NUR ---
patient is sleeping on bipap. will continue to monitor
--- NOTE | 2018-12-29 15:52 | NUR ---
DR GARAY CAME IN AND DID NOT GET A CHANCE TO TALK TO HIM. I WAS UNAWARE HE WAS HERE. PHARMACY WANTED A CLARIFICATION ON LASIX ORDER. CALLED DR DELGADO NUMBER AT [phone]. NO ANSWER. CALLED AGAIN, NO ANSWER AND LEFT A MESSAGE.
[2018-12-29 16:00] VITALS: BP 107/39
--- NOTE | 2018-12-29 17:00 | NUR ---
PATIENTS DAUGHTER WANTS PATIENT OF BIPAP, PATIENT REMOVED, PLACED PATIENT ON 3L NC. PATIENT TOLERATING WELL. PROGRAM ADMINISTRATOR TO CLEAN PATIENT. WILL CONTINUE TO MONITOR
--- NOTE | 2018-12-29 19:01 | NUR ---
new iv on r hand 22g sl. clean dry and intact. l ac 22 g removed, tip intact.
--- NOTE | 2018-12-29 19:17 | NUR ---
gave bedside report to shift leader nurse. patient endorsed in stable condition
--- NOTE | 2018-12-29 19:18 | NUR ---
REPORT RECEIVED FROM AM NURSE AT BEDSIDE. PT IN STABLE CONDITION. AAOX1. INTRODUCED SELF TO PT. NO COMPLAINTS OF PAIN. NO SOB. O2 SAT 99% ON BIPAP. AFEBRILE. IV SITE R HAND 22G SL PATENT AND INTACT. SKIN WARM, DRY, AND INTACT WITH NO OPEN WOUNDS. BED LOCKED IN LOW POSITION. CALL GILBERT WITHIN REACH. SAFETY PRECAUTIONS IN PLACE. ALL NEEDS MET AT THIS TIME.
--- NOTE | 2018-12-29 19:39 | NUR ---
PLACED BIPAP ON STAND BY, PT BS ARE BILAT CLEAR AND DIMINISHED LOWE LOBES. FACE WAS STARTING TO BE RED ALONG THE BIAPA MASK, PT SAT P8% ON 3 L MC
--- NOTE | 2018-12-29 20:30 | NUR ---
RECEIVED BEDSIDE REPORT FROM YAZMIN VILLALTA, PATIENT IN BED, ON 3 L NC, O2SAT 99%. BP 127/79. NO SIGN OF DISTRESS, IV OUT. STARTED NEW IV IN RIGHT FA 24 G. WILL GIVE DUE MEDICATIONS. BED ALARM ON. Addendum: 12/30/18 at 0431 by Leann Guajardo RN ENDORSED TO HOLD DUE FUNMILAYO, WILL HOLD.
--- NOTE | 2018-12-29 20:30 | NUR ---
REPORT GIVEN TO MARIA C ARCE FOR CONTINUITY OF CARE. PT IN STABLE CONDITION.
[2018-12-29] MEDS: ATORVASTATIN 20 MG TAB PO SCH (21:00)
[2018-12-29] MEDS: NORTRIPTYLINE 25 MG CAP PO SCH (21:00)
[2018-12-29] MEDS: DONEPEZIL 10 MG TAB PO SCH (21:00)
--- NOTE | 2018-12-29 21:00 | NUR ---
TOOK OUT ONE SEROQUEL, NEEDED ON MORE FOR TOTAL OF 50 MG. 50 MG REMOVED AND GAVE TO PATIENT. PUT NOTE IN.
--- NOTE | 2018-12-29 21:00 | NUR ---
DUE MEDICATIONS GIVEN PATIENT TOLERATED WELL.
--- NOTE | 2018-12-29 23:30 | NUR ---
PATIENT RESTING IN BED NO SIGNS OF DISTRESS.
[2018-12-30] VITALS: BP 127/79
[2018-12-30] MEDS: VANCOMYCIN 750 MG in DEXTROSE 5% 250 ML IV SCH ×2
--- NOTE | 2018-12-30 | NUR ---
V/S TAKEN ALL WITHIN BASELINE WILL CONTINUE TO MONITOR.
--- NOTE | 2018-12-30 01:15 | NUR ---
DUE VANCO INFUSING AT 165 ML/HR. IV SITE WRAPPED.
--- NOTE | 2018-12-30 03:00 | NUR ---
PATIENT RESTING IN BED, NO SIGNS OF DISTRESS, WILL CONTINUE TO MONITOR.
[2018-12-30 06:21] LABS: BASOPHILS % (AUTO) 0.3 % (0.0-2.0); EOSINOPHILS # (AUTO) 0.2 K/uL (0-0.4); EOSINOPHILS % (AUTO) 2.4 % (0.0-4.0); HEMATOCRIT 36.9 % (36-48); HEMOGLOBIN 11.7 g/dL (12.0-16.0); LYMPHOCYTES # (AUTO) 1.2 K/uL (2.5-16.5); LYMPHOCYTES % (AUTO) 14.8 % (20.5-51.1); MEAN CORPUSCULAR HEMOGLOBIN 27 pg (27-31); MEAN CORPUSCULAR HGB CONC 32 g/dL (33-37); MEAN CORPUSCULAR VOLUME 84.4 fL (80-94); MONOCYTES # (AUTO) 0.7 K/uL (0.8-1.0); MONOCYTES % (AUTO) 8.1 % (1.7-9.3); NEUTROPHILS # (AUTO) 6.1 K/uL (1.8-7.7); NEUTROPHILS % (AUTO) 74.4 % (42.2-75.2); PLATELET COUNT (AUTO) 202 K/uL (140-450); RED BLOOD CELL COUNT(AUTO) 4.38 MIL/uL (4.20-5.40); RED CELL DISTRIBUTION WIDTH 18.9 % (11.6-13.7); WHITE BLOOD COUNT (AUTO) 8.1 K/uL (4.8-10.8)
[2018-12-30] MEDS: LEVOTHYROXINE 0.025 MG TAB PO SCH (06:23)
[2018-12-30 06:45] LABS: ANION GAP 8.8 (8-16); CARBON DIOXIDE 30.7 mmol/L (21-32); CHLORIDE 107 mmol/L (98-107); GLUCOSE 107 mg/dL (74-106); POTASSIUM 4.5 mmol/L (3.5-5.1); SODIUM SERUM 142 mmol/L (136-145); UREA NITROGEN, BLOOD 29 mg/dL (7-18)
--- NOTE | 2018-12-30 07:37 | NUR ---
ENDORSED PATIENT TO DAY SHIFTY NURSE PATIENT STABLE
--- NOTE | 2018-12-30 07:38 | NUR ---
Received bedside report from pm nurse Leann. Pt awake, verbally responsive, no signs of distress. Call light within reach.
[2018-12-30 08:00] VITALS: BP 124/76
--- NOTE | 2018-12-30 08:15 | NUR ---
Daughter Lilibeth at bedside assisting pt with feeding; proper PPE donned by visitor. Pt sitting upright in bed, verbally responsive in pakistani. No signs of distress. Call light within reach.
[2018-12-30] MEDS: MEGESTROL 400 MG/10 ML UDC PO SCH (08:21)
[2018-12-30] MEDS: QUEtiapine FUMARATE 25 MG TAB PO SCH ×2 (08:21→21:37)
[2018-12-30] MEDS: OSELTAMIVIR PHOSPHATE 75 MG CAP PO SCH (08:21)
[2018-12-30] MEDS: CARVEDILOL 12.5 MG TAB PO SCH ×2 (08:22→21:46)
[2018-12-30] MEDS: DILTIAZEM 30 MG TAB PO SCH ×2 (08:22→21:36)
[2018-12-30] MEDS: DOCUSATE SODIUM 100 MG GELCAP PO SCH ×2 (08:23→21:35)
[2018-12-30] MEDS: SILDENAFIL 20 MG TAB PO SCH ×3 (08:23→17:37)
[2018-12-30] MEDS: FUROSEMIDE 40 MG TAB PO SCH (08:23)
[2018-12-30] MEDS: MEMANTINE 10 MG TAB PO SCH ×2 (08:24→21:35)
[2018-12-30] MEDS: MEROPENEM 500 MG in NACL 0.9% 50 ML IV SCH ×2 (08:24→21:45)
[2018-12-30] MEDS: DABIGATRAN ETEXILATE MESYLAT 75 MG CAP PO SCH ×2 (08:27→21:39)
--- NOTE | 2018-12-30 10:25 | NUR ---
CALLED DR LUISA GARAY OFFICE [phone] TO REVIEW ABG SAMPLE REPORT SPOKE TIESHA CLEARY MD TO CALL BACK STAIN MAKER TO LEAVE SAMPLE REPORT WITH ZEKE/KAREN RN CHILD CARE
--- NOTE | 2018-12-30 10:33 | NUR ---
Follow up appointment for pt to see Dr. Rito Lawrence on 01/08/19 at 1530. Office # [address] [facility]. [id number]. Appointment card given to pt's daughter Lilibeth with verbal understanding. Aroldo Beth RN for the follow appointment.
--- NOTE | 2018-12-30 12:15 | NUR ---
Pt sitting in chair at bedside, daughter Lilibeth assisting pt with feeding. Pt shows no signs of distress.
[2018-12-30 13:00] VITALS: BP 109/44
[2018-12-30] MEDS: ALBUTEROL 0.083% 2.5 MG/3 ML NEBU INH PRN (15:06)
--- NOTE | 2018-12-30 15:06 | NUR ---
BIPAP ON STANDBY
[2018-12-30 16:00] VITALS: BP 136/60
--- NOTE | 2018-12-30 16:26 | NUR ---
Modeler Note: I faxed inquiry to [facility], phone number , fax number . Per Billie, they cannot deliver portable O2 tank today, they will be able deliver it tomorrow morning between 9:30am-11am, patient's nurse Etta made aware. I received a call from , he asked me if I could find an accepting snf for patient for abx ivs. I told him patient's daughter Lilibeth wanted to take patient home upon discharge. Per Dr. Lawrence, he will speak with Lilibeth regarding snf placement.
--- NOTE | 2018-12-30 19:07 | NUR ---
PT DAUGHTER REQUESTED TO PLACE PATIENT ON BIPAP. ON NASAL CANNULA RR-24, [id number]% HR-84 BS-CLEAR. PATIENT ON BIPAP ON CURRENT SETTING 10/29, RR-14, FIO2-30%
--- NOTE | 2018-12-30 19:30 | NUR ---
Report given to pm nurse Marcelina.
--- NOTE | 2018-12-30 19:31 | NUR ---
RECD. SLEEPING COMFORTABLY IN BED, ON BIPAP. 02 SAT -97%. IV OF NS INFUSING AT TKO, RIGHT FOREARM G22. RESPIRATION EVEN AND UNLABORED. ON BILATERAL LEG SEQUENTIALS. OPENS EYES WHEN AWAKEN BUT WENT BACK TO SLEEP AGAIN. SAFETY MEASURES ENFORCED. NO APPEARANCE OF PAIN NOTED 0/10.
--- NOTE | 2018-12-30 20:00 | NUR ---
Patient's Plan of Care was discussed and reviewed with LACE MENDER: MARIA VICTORIA TORRES LVN.
[2018-12-30 20:30] VITALS: BP 147/78
[2018-12-30] MEDS: DONEPEZIL 10 MG TAB PO SCH (21:35)
[2018-12-30] MEDS: NORTRIPTYLINE 25 MG CAP PO SCH (21:37)
[2018-12-30] MEDS: ATORVASTATIN 20 MG TAB PO SCH (21:37)
--- NOTE | 2018-12-30 21:46 | NUR ---
WOKE UP, A/OX1. CONFUSED BUT ABLE TO TAKE DUE PO MEDICATIONS GIVEN ONE BY ONE WITH JUICE AND WATER. HOB ELEVATED 45 DEGREES. NO SIGNS AND SYMPTOMS OF ASPIRATION NOTED.
--- NOTE | 2018-12-30 22:00 | NUR ---
CONFUSED, PULLED OUT HER IV LINE. WILL INSERT A NEW ONE.
--- NOTE | 2018-12-30 22:02 | NUR ---
RN CALLED IN THE ROOM TO PUT THE BIPAP ON AFTER GAVE PT HER MEDS. PT LOOKS AT ME, AND SHE TOLD ME;'NO' IN POLISH 'PLEASE', AND I PLACED PT IN NASAL CANULA 2 L, HER FACE WAS SMILE, AND THANKS ME,. PT DOES NOT NEEDED AT THIS TIME, LOOK BETTER AND MORE RELIVE.
[2018-12-31] VITALS: BP 92/50
--- NOTE | 2018-12-31 | NUR ---
NEW IV LINE INSERTED BY CHARGE NURSE NUBIA AT THE RIGHT WRIST G22.
[2018-12-31] MEDS: VANCOMYCIN 750 MG in DEXTROSE 5% 250 ML IV SCH (00:45)
--- NOTE | 2018-12-31 04:00 | NUR ---
STILL SLEEPING COMFORTABLY, 02 SAT - 96-97% ON 02 2 LITERS VIA N/C.
[2018-12-31 06:14] LABS: BASOPHILS % (AUTO) 0.5 % (0.0-2.0); EOSINOPHILS # (AUTO) 0.2 K/uL (0-0.4); EOSINOPHILS % (AUTO) 2.7 % (0.0-4.0); HEMATOCRIT 33.8 % (36-48); HEMOGLOBIN 10.5 g/dL (12.0-16.0); LYMPHOCYTES # (AUTO) 1.1 K/uL (2.5-16.5); LYMPHOCYTES % (AUTO) 16.4 % (20.5-51.1); MEAN CORPUSCULAR HEMOGLOBIN 26 pg (27-31); MEAN CORPUSCULAR HGB CONC 31 g/dL (33-37); MEAN CORPUSCULAR VOLUME 84.2 fL (80-94); MONOCYTES # (AUTO) 0.7 K/uL (0.8-1.0); MONOCYTES % (AUTO) 11.2 % (1.7-9.3); NEUTROPHILS # (AUTO) 4.4 K/uL (1.8-7.7); NEUTROPHILS % (AUTO) 69.2 % (42.2-75.2); PLATELET COUNT (AUTO) 180 K/uL (140-450); RED BLOOD CELL COUNT(AUTO) 4.01 MIL/uL (4.20-5.40); RED CELL DISTRIBUTION WIDTH 18.7 % (11.6-13.7); WHITE BLOOD COUNT (AUTO) 6.4 K/uL (4.8-10.8)
[2018-12-31 07:24] LABS: ANION GAP 11.1 (8-16); CARBON DIOXIDE 30.7 mmol/L (21-32); CHLORIDE 104 mmol/L (98-107); GLUCOSE 107 mg/dL (74-106); POTASSIUM 4.8 mmol/L (3.5-5.1); SODIUM SERUM 141 mmol/L (136-145); UREA NITROGEN, BLOOD 34 mg/dL (7-18)
--- NOTE | 2018-12-31 07:24 | NUR ---
CONDITION REMAIN STABLE. ENDORSED TO AM NURSE FOR CONTINUITY OF CARE.
--- NOTE | 2018-12-31 07:25 | NUR ---
RECEIVED BEDSIDE REPORT FROM YAZMIN IRENE. PT SLEEPING, BUT EASILY AROUSABLE. NO SIGNS OF DISTRESS NOTED. NO REDNESS, SWELLING, OR INFLAMMATION NOTED ON IV SITE. CALL [facility] WITHIN REACH. SAFETY MEASURES IN PLACE. PLAN OF CARE REVIEWED.
[2018-12-31] MEDS: LEVOTHYROXINE 0.025 MG TAB PO SCH (07:47)
[2018-12-31 08:00] VITALS: BP 118/63
--- NOTE | 2018-12-31 09:00 | NUR ---
Flight Coordinator Note: I called and spoke with Billie from [facility], phone number , fax number , instructed her to please cancel home O2 referral.
[2018-12-31] MEDS ORDERED: MEROPENEM 500 MG VIAL IV ONE (10:11)
[2018-12-31] MEDS: MEROPENEM 500 MG in NACL 0.9% 50 ML IV SCH (10:18)
[2018-12-31] MEDS: DILTIAZEM 30 MG TAB PO SCH (10:19)
[2018-12-31] MEDS: QUEtiapine FUMARATE 25 MG TAB PO SCH (10:19)
[2018-12-31] MEDS: MEGESTROL 400 MG/10 ML UDC PO SCH (10:19)
[2018-12-31] MEDS: OSELTAMIVIR PHOSPHATE 75 MG CAP PO SCH (10:20)
--- NOTE | 2018-12-31 10:20 | NUR ---
Daily Sales Audit Clerk Note: Per Charge Nurse Rachell, patient's daughter Lilibeth is in agreement with patient being transfer to retirement facility for continuity of care. RN Rachell stated Lilibeth's snf choice is [facility] . I faxed inquiry to [facility].
--- NOTE | 2018-12-31 10:20 | NUR ---
ADMINISTERED SCHEDULED MEDICATIONS. PT TOLERATED WELL. NO OTHER NEEDS AT THIS TIME.
[2018-12-31] MEDS: SILDENAFIL 20 MG TAB PO SCH ×2 (10:22→14:09)
[2018-12-31] MEDS: DOCUSATE SODIUM 100 MG GELCAP PO SCH (10:22)
[2018-12-31] MEDS: FUROSEMIDE 40 MG TAB PO SCH (10:23)
[2018-12-31] MEDS: CARVEDILOL 12.5 MG TAB PO SCH (10:23)
[2018-12-31] MEDS: MEMANTINE 10 MG TAB PO SCH (10:23)
[2018-12-31] MEDS: DABIGATRAN ETEXILATE MESYLAT 75 MG CAP PO SCH (10:30)
--- NOTE | 2018-12-31 11:34 | NUR ---
RECE[facility]ED [facility] PER HUBER, THERE BED IS AVAILABLE FOR PATIENT TO BE TRANSFERRED.
--- NOTE | 2018-12-31 14:09 | NUR ---
ADMINISTERED SCHEDULED MEDICATIONS. PT TOLERATED WELL. NO OTHER NEEDS AT THIS TIME.
--- NOTE | 2018-12-31 14:15 | NUR ---
Gaming Pit Boss Note: Per Viviane from [facility] , patient has been accepted and may go to room 100C today, accepting physician is . Viviane stated [facility] transportation will be here between 3pm-4pm today, patient's nurse Tara made aware.
[2018-12-31] MEDS ORDERED: VANC750F IV (15:29)
[2018-12-31] MEDS ORDERED: MER500I IV ×2 (15:29→15:31)
--- NOTE | 2018-12-31 15:40 | NUR ---
CALLED [facility] AND SPOKE WITH FILIPE, HE STATED THAT THEY WILL BE HERE TO [employer] PT BETWEEN 4:30-5:30 PM TODAY. GARRISON NOTIFIED
--- NOTE | 2018-12-31 16:38 | NUR ---
RE[facility] TO [facility]
--- NOTE | 2018-12-31 17:04 | NUR ---
LEFT A MESSAGE TO PT'S DAUGHTER OSITO THAT HER MOTHER IS BEING PICKED UP NOW BY [email or web address] GOING TO ROOM C IN [facility].
--- NOTE | 2018-12-31 17:05 | NUR ---
D/C INSTRUCTIONS AND PAPERWORK WERE GIVEN. PT VERBALIZED UNDERSTANDING. IV LEFT IN PLACE FOR CONTINUOUS IV ABX IN [facility] PER MD ORDER. PT STABLE, AWAKE, AND ALERT. [facility] PICKED UP PATIENT BY [facility] TO BE TAKEN TO [facility].
== END 2018-12-31 17:05 | DRG 871 ==
LOC: MED 15:41 → MTU 17:34
PROVIDERS: ADMIT Preventive Medicine Preventive Medicine/Occupational Environmental Medicine; ATTEND Preventive Medicine Preventive Medicine/Occupational Environmental Medicine
PROC: 5A09357 Assistance with Respiratory Ventilation, Less than 24 Consecutive Hours, Continuous Positive Airway Pressure (ICD-10-PCS; principal; 2018-12-29)
PROC: 5A09357 Assistance with Respiratory Ventilation, Less than 24 Consecutive Hours, Continuous Positive Airway Pressure (ICD-10-PCS; 2018-12-30)
DX: A41.9 Sepsis, unspecified organism (principal); J18.9 Pneumonia, unspecified organism; J96.01 Acute respiratory failure with hypoxia; J10.00 Influenza due to other identified influenza virus with unspecified type of pneumonia; I50.23 Acute on chronic systolic (congestive) heart failure; N17.9 Acute kidney failure, unspecified; N39.0 Urinary tract infection, site not specified; J44.0 Chronic obstructive pulmonary disease with (acute) lower respiratory infection; E87.5 Hyperkalemia; J10.1 Influenza due to other identified influenza virus with other respiratory manifestations; I48.91 Unspecified atrial fibrillation; E03.9 Hypothyroidism, unspecified; E78.5 Hyperlipidemia, unspecified; F32.9 Major depressive disorder, single episode, unspecified; E78.00 Pure hypercholesterolemia, unspecified; F03.90 Unspecified dementia, unspecified severity, without behavioral disturbance, psychotic disturbance, mood disturbance, and anxiety; I11.0 Hypertensive heart disease with heart failure; I25.10 Atherosclerotic heart disease of native coronary artery without angina pectoris; F41.9 Anxiety disorder, unspecified; I27.20 Pulmonary hypertension, unspecified; I07.1 Rheumatic tricuspid insufficiency; J44.9 Chronic obstructive pulmonary disease, unspecified; D64.9 Anemia, unspecified; Z88.0 Allergy status to penicillin; Z88.8 Allergy status to other drugs, medicaments and biological substances; Z88.1 Allergy status to other antibiotic agents; Z91.041 Radiographic dye allergy status; Z95.810 Presence of automatic (implantable) cardiac defibrillator; Z90.710 Acquired absence of both cervix and uterus; Z90.49 Acquired absence of other specified parts of digestive tract; Z86.73 Personal history of transient ischemic attack (TIA), and cerebral infarction without residual deficits
CPT/HCPCS: 36415; 36600; 70450; 71045; 80048; 80053; 81001; 82550; 82803; 83605; 83735; 83880; 84100; 84484; 85025; 85651; 86140; 87040; 87070; 87081; 87086; 87205; 87804; 89220; 93005; 94640; 96365; 97110; 97116; 97530; 99285; J1956; J2185; J3370; J7030; J7060; J7613; Q0092